=== PATIENT | male | born 1990 | race Caucasian/White ===

== ENCOUNTER → 2020-08-14 | Outpatient (CLI) | payer OTHER ==
--- NOTE | 2020-08-14 11:03 | REP ---
INDICATION: R22.41- MASS SOFT TISSUE OF RT UPPER THIGH. COMPARISON: None. TECHNIQUE: Multiple sequences obtained in the axial, sagittal and coronal planes prior to and following the intravenous administration of 20 mL ProHance. FINDINGS: At the site of the reported palpable abnormality in the anterior distal thigh a subcutaneous lobulated nodule is present which is hypointense on both T1 and T2 weighted images. It measures approximately 2.0 x 1.5 x 2.4 cm. There is no enhancement. No other soft tissue nodule is seen. The visualized distal femur demonstrates no abnormalities. IMPRESSION: Lobulated nodule in a subcutaneous location in the anterior distal thigh as discussed above demonstrating hypointense signal on both T1 and T2 weighted images. There is no enhancement. This is compatible with a benign nodule such as a fibrous and/or calcific lesion. <Electronically signed by Elvis Thao > 08/14/20 1050
== END ==
LOC: M PLARAD 07:23
PROVIDERS: ATTEND Nurse Practitioner
DX: R22.41 Localized swelling, mass and lump, right lower limb (principal)

== ENCOUNTER → 2020-10-02 | Outpatient (REF) | payer OTHER | LOC: M LAB REF 09:22 | PROVIDERS: ATTEND Dermatology | DX: C44.319 Basal cell carcinoma of skin of other parts of face (principal) ==

== ENCOUNTER → 2021-06-28 | Outpatient (REF) | payer OTHER | LOC: M LAB REF 09:01 | PROVIDERS: ATTEND Surgery | DX: D48.7 Neoplasm of uncertain behavior of other specified sites (principal) ==

== ENCOUNTER → 2025-09-04 | Outpatient (REF) | payer OTHER ==
[2025-09-04 18:46] LABS: APPEARANCE, URINE CLEAR (CLEAR); BACTERIA, URINE AUTO NEGATIVE (NEGATIVE); BILIRUBIN, URINE AUTO NEGATIVE (NEGATIVE); BLOOD, URINE BLOOD NEGATIVE (NEGATIVE); GLUCOSE, URINE (UA) AUTO NEGATIVE (NEGATIVE); KETONE, URINE AUTO NEGATIVE (NEGATIVE); LEUKOCYTE ESTERASE, URINE AUTO NEGATIVE (NEGATIVE); MUCUS, URINE SMALL (NEGATIVE); NITRITE, URINE AUTO NEGATIVE (NEGATIVE); PROTEIN, URINE AUTO NEGATIVE (NEGATIVE); RBC, URINE AUTO 0 /HPF (0-3); SPECIFIC GRAVITY URINE AUTO 1.009 (1.002-1.035); SQUAMOUS EPITHELIAL CELL UR AU 0 /HPF (0-6); UROBILINOGEN, URINE AUTO 0.2 mg/dL (0.0-2.0); WBC, URINE AUTO 0 /HPF (0-3)
== END ==
LOC: M LAB REF 17:14
PROVIDERS: ATTEND Physician Assistant
DX: N39.0 Urinary tract infection, site not specified (principal)

== ENCOUNTER → 2025-09-04 | Outpatient (CLI) | payer OTHER | LOC: M RAD 15:33 | PROVIDERS: ATTEND Physician Assistant | DX: M54.50 Low back pain, unspecified (principal) ==